=== PATIENT | male | born 1955 | race Caucasian/White ===

== ENCOUNTER 2018-01-23 16:03 | Observation (INO) | payer BC, SELFPAY ==
[2018-01-23] MEDS ORDERED: ONDANSETRON 4 MG/2 ML VIAL ONE (16:27)
[2018-01-23] MEDS ORDERED: NA CHLORIDE 0.9% 1,000 ML ONE (16:27)
[2018-01-23] MEDS ORDERED: FAMOTIDINE 20 MG/2 ML VIAL IV ONE (16:27)
[2018-01-23 16:51] LABS: Absolute Lymphocytes (CBC) 0.9 K/uL (0.7-4.9); Absolute Monocytes 1.1 K/uL (0.1-1.3); Absolute Neutrophil 7.2 K/uL (1.8-8.0); Basophils % 0.3 % (0-1.3); Eosinophils % 0.4 % (0-4.4); Hematocrit 41.1 % (39.6-49.0); Lymphocytes % 9.6 % (15.3-44.8); MCH 32.8 pg (27.0-35.0); MCV 93.1 fL (80-100); MPV 8.6 fL (7.6-11.3); Monocytes % 12.1 % (3.3-12.3); RBC Red Blood Cell Count 4.42 M/uL (4.33-5.43)
[2018-01-23 16:59] LABS: Protime INR 1.03
[2018-01-23 17:08] LABS: Bilirubin Direct 0.4 mg/dL (0-0.2); Bilirubin Total 1.6 mg/dL (0.2-1.0); Potassium 3.1 mmol/L (3.5-5.1); Protein, Total 6.9 g/dL (6.4-8.2)
--- NOTE | 2018-01-23 17:28 | RAD REPORT ---
EXAM DESCRIPTION: RAD - Chest Single View - 01/23/2018 5:21 pm CLINICAL HISTORY: weakness, n/v Chest pain. COMPARISON: No comparisons FINDINGS: Portable technique limits examination quality. The lungs are grossly clear. The heart is normal in size. No displaced fractures. IMPRESSION: No acute intrathoracic process suspected.
--- NOTE | 2018-01-23 18:07 | ER ---
Nurse's Notes [facility] Name: Yonis Barr Age: 62 yrs Sex: Male : 1955 Arrival Date: 01/23/2018 Time: 16:07 Bed 26 Private MD: Diagnosis: Hypo-osmolality and hyponatremia;Hypokalemia;Dehydration Presentation: 01/23 16:08 Presenting complaint: Patient states: I FEEL NAUSEATED AND I VOMITED FIVE TIMES rv ALREADY" EMS states: "PATIENT IS AT THE [employer]. SUDDENLY HE FELT NAUSEA AND VOMITING AND A LITTLE BIT OF DIZZINESS". Transition of care: patient was not received from another setting of care. Onset of symptoms was January 23, 2018 at 15:00. Risk Assessment: Do you want to hurt yourself or someone else? Patient reports no desire to harm self or others. Initial Sepsis Screen: Does the patient meet any 2 criteria? No. Patient's initial sepsis screen is negative. Does the patient have a suspected source of infection? No. Patient's initial sepsis screen is negative. Care prior to arrival: None. 16:08 Method Of Arrival: EMS: [facility] rv 16:08 Acuity: ROSAMARIA 3 rv Triage Assessment: 16:14 GI: Reports nausea, vomiting. rv Historical: - Allergies: 16:11 PENICILLINS; rv - Home Meds: 16:11 Lisinopril Oral [Active]; Lipitor Oral [Active]; rv - PMHx: 16:11 Hypertension; rv - PSHx: 16:11 Knee surgery; rv - Immunization history:: Adult Immunizations up to date. - Social history:: Smoking status: Patient/guardian denies using tobacco, the patient reports quitting approximately 2 years ago. - Ebola Screening: : Patient negative for fever greater than or equal to 101.5 degrees Fahrenheit, and additional compatible Ebola Virus Disease symptoms Patient denies exposure to infectious person Patient denies travel to an Ebola-affected area in the 21 days before illness onset. Screenin:13 Abuse screen: Denies threats or abuse. Denies injuries from another. Nutritional rv screening: No deficits noted. Tuberculosis screening: No symptoms or risk factors identified. Fall Risk None identified. Assessment: 16:12 General: Appears in no apparent distress. comfortable, Behavior is calm, cooperative. rv Pain: Denies pain. Neuro: Level of Consciousness is awake, alert, obeys commands, Oriented to person, place, time, situation. Cardiovascular: Heart tones S1 S2 present. Respiratory: Airway is patent. GI: Abdomen is round non-distended, Pt is actively vomiting clear fluid. : No signs and/or symptoms were reported regarding the genitourinary system. EENT: No signs and/or symptoms were reported regarding the EENT system. Derm: Skin is intact. 17:06 Reassessment: Patient appears in no apparent distress at this time. Patient and/or rv family updated on plan of care and expected duration. Pain level reassessed. Patient is alert, oriented x 3, equal unlabored respirations, skin warm/dry/pink. NAUSEA DECREASED. 19:00 Reassessment: Patient appears in no apparent distress at this time. Patient and/or rv family updated on plan of care and expected duration. Pain level reassessed. Patient is alert, oriented x 3, equal unlabored respirations, skin warm/dry/pink. AWAITING ROOM ASSIGNMENT. Vital Signs: 16:11 BP 157 / 99; Pulse 87; Temp 98.7(O); Pulse Ox 99% ; Weight 108.86 kg (R); Height 6 ft. rv 2 in. (187.96 cm) (R); 17:05 BP 149 / 88; Pulse 76; Pulse Ox 98% on R/A; rv 18:26 BP 157 / 93; Pulse 81; Pulse Ox 97% on R/A; rv 19:50 BP 118 / 88; Pulse 93; Pulse Ox 97% on R/A; rv 16:11 Body Mass Index 30.81 (108.86 kg, 187.96 cm) rv ED Course: 16:07 Patient arrived in ED. rv 16:09 Otilio Sullivan MD is Attending Physician. kdr 16:10 Triage completed. rv 16:13 Inserted saline lock: 20 gauge in right antecubital area, using aseptic technique. rv 16:13 Arm band placed on right wrist. rv 16:14 Patient has correct armband on for positive identification. Placed in gown. Bed in low rv position. Call light in reach. Pulse ox on. NIBP on. 17:21 XRAY Chest (1 view) In Process Unspecified. EDMS 18:04 Ping Deng MD is Hospitalizing Provider. kdr 19:59 No provider procedures requiring assistance completed. Patient admitted, IV remains in rv place. intact. Administered Medications: 16:30 Drug: NS 0.9% 1000 ml Route: IV; Rate: 1 bolus; Site: right antecubital; rv 20:00 Follow up: IV Status: Completed infusion rv 16:30 Drug: Zofran 4 mg Route: IVP; Site: right antecubital; rv 17:01 Follow up: Response: No adverse reaction; Nausea is decreased rv 16:30 Drug: Pepcid 20 mg Route: IVP; Site: right antecubital; rv 17:01 Follow up: Response: No adverse reaction; Nausea is decreased rv Outcome: 18:06 Decision to Hospitalize by Provider. kdr 20:00 Admitted to Med/surg accompanied by tech, via wheelchair, with chart, Report called to rv RAMESH 20:00 Condition: stable 20:00 Instructed on the need for admit. 20:11 Patient left the ED. rv Signatures: Dispatcher [employer] Otilio Mcgowan MD MD kdr Vicente, Ronaldo, HUGO RN rv
--- NOTE | 2018-01-23 18:07 | EDPHYS ---
Physician Documentation [facility] Name: Yonis Barr Age: 62 yrs Sex: Male : 1955 Arrival Date: 01/23/2018 Time: 16:07 Bed 26 Private MD: ED Physician Otilio Sullivan HPI: 01/23 16:20 This 62 yrs old Male presents to ER via EMS with complaints of kdr Nausea/Vomiting. 16:20 The patient presents to the emergency department with nausea, that is mild, vomiting, kdr that is intermittent, 3 times since the onset of symptoms. Onset: The symptoms/episode began/occurred suddenly, just prior to arrival. Possible causes: heat exhaustion. The symptoms are aggravated by nothing. The symptoms are alleviated by nothing. Associated signs and symptoms: Pertinent positives: nausea, vomiting. Severity of symptoms: At their worst the symptoms were mild in the emergency department the symptoms have improved moderately. The patient has not experienced similar symptoms in the past. The patient has not recently seen a physician. The patient was working at a [employer] the [employer] . Historical: - Allergies: 16:11 PENICILLINS; rv - Home Meds: 16:11 Lisinopril Oral [Active]; Lipitor Oral [Active]; rv - PMHx: 16:11 Hypertension; rv - PSHx: 16:11 Knee surgery; rv - Immunization history:: Adult Immunizations up to date. - Social history:: Smoking status: Patient/guardian denies using tobacco, the patient reports quitting approximately 2 years ago. - Ebola Screening: : Patient negative for fever greater than or equal to 101.5 degrees Fahrenheit, and additional compatible Ebola Virus Disease symptoms Patient denies exposure to infectious person Patient denies travel to an Ebola-affected area in the 21 days before illness onset. ROS: 16:20 Constitutional: Negative for fever, chills, and weight loss, Eyes: Negative for injury, kdr pain, redness, and discharge, ENT: Negative for injury, pain, and discharge, Neck: Negative for injury, pain, and swelling, Cardiovascular: Negative for chest pain, palpitations, and edema, Respiratory: Negative for shortness of breath, cough, wheezing, and pleuritic chest pain, Back: Negative for injury and pain, : Negative for injury, bleeding, discharge, and swelling, MS/Extremity: Negative for injury and deformity, Skin: Negative for injury, rash, and discoloration, Psych: Negative for depression, anxiety, suicide ideation, homicidal ideation, and hallucinations, Allergy/Immunology: Negative for hives, rash, and allergies, Endocrine: Negative for neck swelling, polydipsia, polyuria, polyphagia, and marked weight changes, Hematologic/Lymphatic: Negative for swollen nodes, abnormal bleeding, and unusual bruising. 16:20 Abdomen/GI: Positive for nausea and vomiting, Negative for diarrhea, constipation, abdominal cramps, abdominal distension, anorexia, dysphagia, hematemesis, black/tarry stool, rectal pain, rectal bleeding, bowel incontinence. Exam: 16:20 Constitutional: This is a well developed, well nourished patient who is awake, alert, kdr and in no acute distress. Head/Face: Normocephalic, atraumatic. Eyes: Pupils equal round and reactive to light, extra-ocular motions intact. Lids and lashes normal. Conjunctiva and sclera are non-icteric and not injected. Cornea within normal limits. Periorbital areas with no swelling, redness, or edema. Neck: Trachea midline, no thyromegaly or masses palpated, and no cervical lymphadenopathy. Supple, full range of motion without nuchal rigidity, or vertebral point tenderness. No Meningismus. Chest/axilla: Normal chest wall appearance and motion. Nontender with no deformity. No lesions are appreciated. Cardiovascular: Regular rate and rhythm with a normal S1 and S2. No gallops, murmurs, or rubs. Normal PMI, no JVD. No pulse deficits. Respiratory: Lungs have equal breath sounds bilaterally, clear to auscultation and percussion. No rales, rhonchi or wheezes noted. No increased work of breathing, no retractions or nasal flaring. Abdomen/GI: Soft, non-tender, with normal bowel sounds. No distension or tympany. No guarding or rebound. No evidence of tenderness throughout. Back: No spinal tenderness. No costovertebral tenderness. Full range of motion. Skin: Warm, dry with normal turgor. Normal color with no rashes, no lesions, and no evidence of cellulitis. MS/ Extremity: Pulses equal, no cyanosis. Neurovascular intact. Full, normal range of motion. Neuro: Awake and alert, GCS 15, oriented to person, place, time, and situation. Cranial nerves II-XII grossly intact. Motor strength 5/5 in all extremities. Sensory grossly intact. Cerebellar exam normal. Normal gait. Psych: Awake, alert, with orientation to person, place and time. Behavior, mood, and affect are within normal limits. Vital Signs: 16:11 BP 157 / 99; Pulse 87; Temp 98.7(O); Pulse Ox 99% ; Weight 108.86 kg (R); Height 6 ft. rv 2 in. (187.96 cm) (R); 17:05 BP 149 / 88; Pulse 76; Pulse Ox 98% on R/A; rv 18:26 BP 157 / 93; Pulse 81; Pulse Ox 97% on R/A; rv 19:50 BP 118 / 88; Pulse 93; Pulse Ox 97% on R/A; rv 16:11 Body Mass Index 30.81 (108.86 kg, 187.96 cm) rv MDM: 16:20 Data reviewed: vital signs, nurses notes, lab test result(s), radiologic studies. kdr Counseling: I had a detailed discussion with the patient and/or guardian regarding: the historical points, exam findings, and any diagnostic results supporting the discharge/admit diagnosis, lab results, radiology results. 18:06 Patient medically screened. [facility] 01/23 16:19 Order name: Basic Metabolic Panel; Complete Time: 17:56 [facility] 01/23 16:19 Order name: CBC with Diff; Complete Time: 17:56 [facility] 01/23 16:19 Order name: CPK; Complete Time: 17:56 [facility] 01/23 16:19 Order name: LFT's; Complete Time: 17:56 [facility] 01/23 16:19 Order name: Magnesium; Complete Time: 17:56 [facility] 01/23 16:19 Order name: NT PRO-BNP; Complete Time: 17:56 [facility] 01/23 16:19 Order name: PT-INR; Complete Time: 17:56 [facility] 01/23 16:19 Order name: Ptt, Activated; Complete Time: 17:56 [facility] 01/23 16:19 Order name: Troponin (emerg Dept Use Only); Complete Time: 17:56 [facility] 01/23 16:19 Order name: XRAY Chest (1 view); Complete Time: 17:56 [facility] 01/23 17:35 Order name: Urine Microscopic Only rv 01/23 17:46 Order name: Urine Dipstick--Ancillary (enter results) eb 01/23 16:19 Order name: EKG; Complete Time: 16:20 [facility] 01/23 16:19 Order name: Cardiac monitoring; Complete Time: 16:43 [facility] 01/23 16:19 Order name: EKG - Nurse/Tech; Complete Time: 16:43 [facility] 01/23 16:19 Order name: IV Saline Lock; Complete Time: 16:43 [facility] 01/23 16:19 Order name: Labs collected and sent; Complete Time: 16:43 [facility] 01/23 16:19 Order name: O2 Per Protocol; Complete Time: 16:43 [facility] 01/23 16:19 Order name: O2 Sat Monitoring; Complete Time: 16:43 [facility] 01/23 16:19 Order name: Urine Dipstick-Ancillary (obtain specimen); Complete Time: 18:23 kdr Administered Medications: 16:30 Drug: NS 0.9% 1000 ml Route: IV; Rate: 1 bolus; Site: right antecubital; rv 20:00 Follow up: IV Status: Completed infusion rv 16:30 Drug: Zofran 4 mg Route: IVP; Site: right antecubital; rv 17:01 Follow up: Response: No adverse reaction; Nausea is decreased rv 16:30 Drug: Pepcid 20 mg Route: IVP; Site: right antecubital; rv 17:01 Follow up: Response: No adverse reaction; Nausea is decreased rv Disposition: 01/23/18 18:06 Hospitalization ordered by Ping Deng for Observation. Preliminary diagnosis are Hypo-osmolality and hyponatremia, Hypokalemia, Dehydration. - Bed requested for Telemetry/MedSurg (observation). - Status is Observation. rv - Condition is Fair. - Problem is new. - Symptoms have improved. UTI on Admission? No Signatures: Dispatcher [employer] EDJessica Hugo RN RN kl Rittger, Kevin, MD MD kdr Julio Jesus RN RN rv Corrections: (The following items were deleted from the chart) 19:09 18:06 Hospitalization Ordered by Ping Deng MD for Observation. Preliminary kl diagnosis is Hypo-osmolality and hyponatremia; Hypokalemia; Dehydration. Bed requested for Telemetry/MedSurg (observation). Status is Observation. Condition is Fair. Problem is new. Symptoms have improved. UTI on Admission? No. kdr 20:11 19:09 01/23/2018 18:06 Hospitalization Ordered by Ping Deng MD for Observation. rv Preliminary diagnosis is Hypo-osmolality and hyponatremia; Hypokalemia; Dehydration. Bed requested for Telemetry/MedSurg (observation). Status is Observation. Condition is Fair. Problem is new. Symptoms have improved. UTI on Admission? No. kl
--- NOTE | 2018-01-23 18:08 | P.HP ---
Certification for Inpatient Patient admitted to: Observation With expected LOS: <2 Midnights Patient will require the following post-hospital care: None Practitioner: I am a practitioner with admitting privileges, knowledge of patient current condition, hospital course, and medical plan of care. Services: Services provided to patient in accordance with Admission requirements found in Title 42 Section 412.3 of the Code of Federal Regulations Patient History Date of Service: 01/23/18 Primary Care Provider: OOT Reason for admission: N/V History of Present Illness: 62 y/o M with PMHX of HTN and HLP who presented the hospital her hand a mosquito vessel after he was found to have nausea vomiting and abdominal pain that started this morning. 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 Patient then was taken to a cold room where he vomited 3 times and thus they decided to call the EMS and patient was brought over to the hospital for further care. Patient stated that he has also been drinking alcohol for past couple a days that has not been able to eat or drink any other things due to nausea this morning. No other complaints to offer at this time. Denies having any fever chills diarrhea or any other associated symptoms at this time. In the ER patient has been found to have hypernatremia and thus was admitted to the hospital for further custodial medications list reviewed: No - Past Medical/Surgical History Has patient received pneumonia vaccine in the past: No Diabetic: No -: HTN -: HLP Past Surgical History: Reviewed- Non-Contributory - Family History Family History: Reviewed- Non-Contributory - Social History Smoking Status: Former smoker Counseled patient to stop smoking for: more than 10 minutes Smoking therapy provided: Yes Patient receptive to therapy: No Review of Systems General: As per HPI Physical Examination - Physical Exam General: Alert, In no apparent distress, Oriented x3, Obese HEENT: Atraumatic Neck: Supple, 2+ carotid pulse no bruit, No LAD, Without JVD or thyroid abnormality Respiratory: Clear to auscultation bilaterally, Normal air movement Cardiovascular: Regular rate/rhythm, Normal S1 S2 Gastrointestinal: Normal bowel sounds, Soft and benign, Non-distended, No tenderness Musculoskeletal: No tenderness Integumentary: No rashes Neurological: Normal speech, Normal strength at 5/5 x4 extr, Normal tone Lymphatics: No axilla or inguinal lymphadenopathy - Studies Laboratory Data (last 24 hrs) 01/23/18 16:40: PT 12.2, INR 1.03, APTT 28.1 01/23/18 16:40: WBC 9.3, Hgb 14.5, Hct 41.1, Plt Count 193 01/23/18 16:40: Sodium 120 L, Potassium 3.1 L, BUN 12, Creatinine 1.30, Glucose 130 H, Magnesium 2.0, Total Bilirubin 1.6 H, AST 40 H, ALT 39, Alkaline Phosphatase 61 Assessment and Plan - Problems (Diagnosis) (1) Hyponatremia Current Visit: Yes Status: Acute Plan: Symptomatic Hyponatremia. Most likely 2.2 to Dehydration -IV fluids NS at 100ml/hr -Monitor for neurological Signs -DC in 24 to 48hrs once Hyponatremia improved (2) Dehydration Current Visit: Yes Status: Acute Plan: Dehydration due to heat and poor PO intake -IV fluids for now (3) HTN (hypertension) Current Visit: Yes Status: Chronic Plan: restart Home medication Qualifiers: Hypertension type: essential hypertension Qualified Code(s): I10 - Essential (primary) hypertension (4) Hyperlipidemia Current Visit: Yes Status: Chronic Qualifiers: Hyperlipidemia type: mixed hyperlipidemia Qualified Code(s): E78.2 - Mixed hyperlipidemia Discharge Plan: Home Plan to discharge in: 24 Hours - Advance Directives Does patient have a Living Will: No Does patient have a Durable POA for Healthcare: No - Code Status/Comfort Care Code Status Assessed: Yes Critical Care: No
[2018-01-23 18:09] LABS: Urine Blood NEGATIVE (NEG); Urine Glucose NEGATIVE (NEG); Urine Protein NEGATIVE (NEG)
[2018-01-23 18:26] LABS: Urine Bacteria <20 /HPF (NONE SEEN); Urine Culture Reflex Order NOT NEEDED; Urine RBC <5 /HPF (NONE SEEN)
[2018-01-23] MEDS ORDERED: ONDANSETRON 4 MG/2 ML VIAL IV PRN (20:12)
[2018-01-23] MEDS ORDERED: ACETAMINOPHEN 650MG/RECT SUPP RECT PRN (20:12)
[2018-01-23] MEDS ORDERED: POTASSIUM 25 MEQ EFFERV TAB PO ONE (20:23)
[2018-01-23] MEDS: NA CHLORIDE 0.9% 1,000 ML IV SCH (21:31)
[2018-01-24 03:17] LABS: Absolute Lymphocytes (CBC) 1.3 K/uL (0.7-4.9); Absolute Monocytes 0.8 K/uL (0.1-1.3); Absolute Neutrophil 3.4 K/uL (1.8-8.0); Basophils % 0.5 % (0-1.3); Eosinophils % 1.9 % (0-4.4); Hematocrit 39.8 % (39.6-49.0); Lymphocytes % 23.6 % (15.3-44.8); MCH 32.9 pg (27.0-35.0); MCV 93.6 fL (80-100); MPV 8.3 fL (7.6-11.3); Monocytes % 14.3 % (3.3-12.3); RBC Red Blood Cell Count 4.25 M/uL (4.33-5.43)
[2018-01-24 03:34] LABS: Potassium 3.7 mmol/L (3.5-5.1)
[2018-01-24] MEDS ORDERED: POTASSIUM 25 MEQ EFFERV TAB PO ONE (03:51)
[2018-01-24] MEDS: NA CHLORIDE 0.9% 1,000 ML IV SCH (05:06)
--- NOTE | 2018-01-24 09:32 | EKG ---
Test Date: 2018-01-23 Test Time: 16:40:23 Employee Relations Director: VAS[employer] MEASUREMENT RESULTS: Intervals: Rate: 78 DE: 142 QRSD: 92 QT: 382 QTc: 435 Fishtail: P: 39 DE: 142 QRS: 29 T: 30 INTERPRETIVE STATEMENTS: Normal sinus rhythm Normal ECG No previous ECG available for comparison Electronically Signed On 01-24-18 09:31:52 CDT by Bladimir Dailey
--- NOTE | 2018-01-24 12:15 | P.SSS ---
Patient History Date of Service: 01/24/18 Primary Care Provider: JAKE Reason for admission: N/V History of Present Illness: 62 y/o M with PMHX of HTN and HLP who presented the hospital her hand a mosquito vessel after he was found to have nausea vomiting and abdominal pain that started this morning. 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 Patient then was taken to a cold room where he vomited 3 times and thus they decided to call the EMS and patient was brought over to the hospital for further care. Patient stated that he has also been drinking alcohol for past couple a days that has not been able to eat or drink any other things due to nausea this morning. No other complaints to offer at this time. Denies having any fever chills diarrhea or any other associated symptoms at this time. In the ER patient has been found to have hypernatremia and thus was admitted to the hospital for further care Allergies Penicillins Allergy (Mild, Verified 01/23/18 18:36) Hives/Rash Home Medications: Atorvastatin Calcium [Lipitor*] 40 mg PO DAILY 01/23/18 Fexofenadine/Pseudoephedrine [Kami-D 24 Hour Tablet] 1 tab PO DAILY 01/23/18 Lisinopril/Hydrochlorothiazide [Lisinopril-Hctz 20-12.5 mg Tab] 1 tab PO DAILY 01/23/18 - Past Medical/Surgical History Has patient received pneumonia vaccine in the past: No Diabetic: No -: HTN -: HLP -: PSORIASIS -: RIGHT COLLAPSED LUNG -: LEFT KNEE SX - Family History Family History: Reviewed- Non-Contributory - Family History Father -: Cancer Notes: esophageal cancer Mother -: Cancer Notes: breast cancer - Social History Smoking Status: Former smoker Alcohol use: Yes CD- Drugs: Yes Caffeine use: Yes Place of Residence: Home Review of Systems General: As per HPI Physical Examination - Vital Signs Temperature: 98.5 F Blood Pressure: 137/69 Pulse: 74 Respirations: 12 Pulse Ox (%): 98 - Physical Exam General: Alert, In no apparent distress HEENT: Atraumatic, PERRLA, Mucous membr. moist/pink, EOMI, Sclerae nonicteric Neck: Supple, 2+ carotid pulse no bruit, No LAD, Without JVD or thyroid abnormality Respiratory: Clear to auscultation bilaterally, Normal air movement Cardiovascular: Regular rate/rhythm, Normal S1 S2 Gastrointestinal: Normal bowel sounds, No tenderness Musculoskeletal: No tenderness Integumentary: No rashes Neurological: Normal gait, Normal speech, Normal strength at 5/5 x4 extr, Normal tone, Normal affect Lymphatics: No axilla or inguinal lymphadenopathy - Studies Laboratory Data (last 24 hrs) 01/23/18 16:40: PT 12.2, INR 1.03, APTT 28.1 01/23/18 16:40: WBC 9.3, Hgb 14.5, Hct 41.1, Plt Count 193 01/23/18 16:40: Sodium 120 L, Potassium 3.1 L, BUN 12, Creatinine 1.30, Glucose 130 H, Magnesium 2.0, Total Bilirubin 1.6 H, AST 40 H, ALT 39, Alkaline Phosphatase 61 - Diagnosis (Problem(s)) (1) Hyponatremia Current Visit: Yes Status: Resolved Plan: Most likely 2.2 to Dehydration. -Resolved now (2) Dehydration Current Visit: Yes Status: Resolved Plan: Dehydration due to heat and poor PO intake (3) HTN (hypertension) Current Visit: Yes Status: Chronic Qualifiers: Hypertension type: essential hypertension Qualified Code(s): I10 - Essential (primary) hypertension (4) Hyperlipidemia Current Visit: Yes Status: Chronic Qualifiers: Hyperlipidemia type: mixed hyperlipidemia Qualified Code(s): E78.2 - Mixed hyperlipidemia - Disposition Disposition: ROUTINE DISCHARGE Condition: GOOD Patient Discharge Instructions: Please f.u with PCP in 1 to 2 weeks post discharge. You were admitted to the hospital for Hyponatremia due to Dehydration. Diet: Regular Activity: Ad ingris
== END 2018-01-24 12:20 | disposition home or self-care (01) ==
LOC: ER 16:03 → ERHOLD 18:30 → 4TH 19:50
PROVIDERS: ADMIT Family Medicine; ATTEND Family Medicine
DX: E87.1 Hypo-osmolality and hyponatremia (principal); E86.0 Dehydration; E87.6 Hypokalemia; R11.2 Nausea with vomiting, unspecified; I10 Essential (primary) hypertension; E78.2 Mixed hyperlipidemia; L40.9 Psoriasis, unspecified; Z87.891 Personal history of nicotine dependence; Z88.0 Allergy status to penicillin; E66.9 Obesity, unspecified; Z68.30 Body mass index [BMI] 30.0-30.9, adult
CPT/HCPCS: 36415; 71045; 80048; 80076; 81003; 81015; 82550; 83735; 83880; 84484; 85025; 85610; 85730; 93005; 96361; 96374; 96375; 99285; G0378; J2405; J7030